=== PATIENT | male | born 1960 | race Caucasian/White ===

== ENCOUNTER 2024-01-25 13:28 | Emergency (ER) | payer MEDICARE ==
[~2024-01-25] VITALS: Ht 177.8 cm; Wt 77.0 kg
[2024-01-25 13:32] VITALS: O2SAT 98
[2024-01-25] MEDS: ACETAMINOPHEN 500MG TABLET PO ONE (14:33)
[2024-01-25 14:49] LABS: HEMATOCRIT 39.2 % (42.0-52.0); HEMOGLOBIN 12.2 g/dL (14.0-18.0); MEAN CORPUSCULAR HEMOGLOBIN 20.8 pg (28.0-32.0); MEAN CORPUSCULAR VOLUME 66.9 fL (80.0-94.0); PLATELET 286 x1000/uL (130-400); RED BLOOD CELL COUNT 5.86 mill/uL (4.7-6.1); RED CELL DISTRIBUTION WIDTH 15.5 % (11.6-14.6); WHITE BLOOD COUNT 6.9 x1000/uL (4.5-11.0)
[2024-01-25 14:50] LABS: CHLORIDE 111 mEq/L (98-107); POTASSIUM 4.3 mEq/L (3.5-5.1); SODIUM 141 mEq/L (136-145)
[2024-01-25 14:51] LABS: CALCIUM 8.6 mg/dL (8.7-10.4); CARBON DIOXIDE 26 mEq/L (21-32)
[2024-01-25 14:56] LABS: CREATININE 0.9 mg/dL (0.6-1.3); GLUCOSE 96 mg/dL (70-105); UREA NITROGEN BLOOD 14 mg/dL (9-23)
[2024-01-25 15:15] LABS: TROPONIN I HIGH SENSITIVITY < 4 ng/L (3.0-53)
[2024-01-25] MEDS ORDERED: IBUP-2028 MT (15:31)
[2024-01-25 15:56] VITALS: BP 149/82; PULSE 70; RESP 14; TEMP 36.89184; O2SAT 98
== END 2024-01-25 16:14 | disposition home or self-care (01) ==
LOC: ER 14:41
DX: E78.00 Pure hypercholesterolemia, unspecified (principal)
CPT/HCPCS: 36415; 71045; 80048; 84484; 85027; 93005; 99284